=== PATIENT | female | born 2000 | race African-American/Black ===

== ENCOUNTER 2022-12-06 16:42 | Emergency (ER) | payer MEDICAID ==
[~2022-12-06] VITALS: Ht 165.1 cm; Wt 113.0 kg
[2022-12-06 16:56] VITALS: BP 166/82; PULSE 92; RESP 20; O2SAT 99
[2022-12-06] MEDS ORDERED: OCUFLX RIGHTEYE (17:17)
[2022-12-06] MEDS ORDERED: ACETAMINOPHEN 325MG TABLET PO ONE (17:30)
[2022-12-06 17:34] VITALS: TEMP 98.5
== END 2022-12-06 17:36 | disposition home or self-care (01) ==
LOC: ER 16:42
DX: H10.9 Unspecified conjunctivitis (principal)
CPT/HCPCS: 99283

== ENCOUNTER 2023-01-13 06:52 | Emergency (ER) | payer MEDICAID ==
[~2023-01-13] VITALS: Ht 160 cm; Wt 140.0 kg
[~2023-01-13 06:52] MED LIST: OCUFLX RIGHTEYE
[2023-01-13 07:16] VITALS: O2SAT 99
[2023-01-13] MEDS ORDERED: POLY10DR EACHEYE (07:46)
[2023-01-13 08:06] VITALS: BP 145/89; PULSE 90; RESP 16; TEMP 98.2
== END 2023-01-13 08:07 | disposition home or self-care (01) ==
LOC: ER 06:52
DX: H10.9 Unspecified conjunctivitis (principal)
CPT/HCPCS: 81025; 99282; Z7610